=== PATIENT | female | born 1980 | race Caucasian/White ===

== ENCOUNTER 2022-08-26 07:30 | Inpatient (IN) ==
[~2022-08-26 07:30] MED LIST: Buffered Lidocaine 1% SYRIN 1 ml INTRADERM ONE; Lactated Ringers 1000 ml BAG 1,000 ML IV SCH
[2022-08-26] MEDS ORDERED: ROPIVACAINE 5 MG/ML 30 ML BTL (0.5%) ONE (07:47)
[2022-08-26] MEDS ORDERED: ceFAZolin 2 GM in NS PREMIX 2 GM/100 ML BAG IVPB ONE (10:49)
[2022-08-26 12:09] LABS: Rapid COVID-19 Molecular Undetected (Undetected)
[2022-08-26] MEDS ORDERED: Acetaminophen IV 1 GM/100ML 1,000 MG/100 ML BAG IV PRN (12:29)
[2022-08-26] MEDS ORDERED: Ondansetron 4 mg VIAL 2 MG/ML 2 ml VIAL IV PRN (12:29)
[2022-08-26] MEDS ORDERED: Naloxone 0.4 mg VIAL 0.4 mg/ml 1 ml VIAL IV PRN (12:29)
[2022-08-26] MEDS ORDERED: Midazolam 2 mg/2 ml VIAL 1 mg/ml 2 ml VIAL (2 mg) ONE (13:05)
[2022-08-26] MEDS ORDERED: fentaNYL 250 mcg/5 ml 50 MCG/ML 5 ml VIAL (250 MCG) ONE (13:05)
[2022-08-26] MEDS ORDERED: Propofol 10 MG/ML 20 ML BTL ONE ×2 (13:07→16:03)
[2022-08-26] MEDS ORDERED: Rocuronium 50 mg VIAL 10 mg/ml 5 ml VIAL (50 mg) ONE (13:18)
[2022-08-26] MEDS ORDERED: Acetaminophen IV 1 GM/100ML 1,000 MG/100 ML BAG IV ONE (13:43)
[2022-08-26] MEDS ORDERED: Dexamethasone IV 4 MG/ML VIAL 1 ml VIAL ONE (13:43)
[2022-08-26] MEDS ORDERED: Ondansetron 4 mg VIAL 2 MG/ML 2 ml VIAL ONE (13:43)
[2022-08-26] MEDS ORDERED: HYDROmorphone 0.5 MG/0.5 ML SYRINGE ONE ×2 (14:16→19:02)
[2022-08-26] MEDS ORDERED: Ketamine HCL 50 mg/ml 10 ml VIAL (500 MG) ONE (14:17)
[2022-08-26] MEDS ORDERED: Magnesium Hydroxide LIQ 30 ML UDC PO PRN (14:28)
[2022-08-26] MEDS ORDERED: Lactulose 30 ml UDC PO PRN (14:28)
[2022-08-26] MEDS ORDERED: Prochlorperazine 5 mg/ml 2 ml VIAL (10 mg) IV PRN (14:33)
[2022-08-26] MEDS ORDERED: fentaNYL 100 mcg/2 ml 50 MCG/ML VIAL ONE ×3 (15:58→16:34)
[2022-08-26] MEDS ORDERED: HYDROmorphone 1 MG/1 ML SYRINGE ONE ×4 (16:14→18:56)
[2022-08-26] MEDS: fentaNYL 100 mcg/2 ml 50 MCG/ML VIAL IV PRN ×5 (16:18→16:44)
[2022-08-26] MEDS: HYDROmorphone 1 MG/1 ML SYRINGE IV PRN ×3 (16:35→16:45)
[2022-08-26] MEDS ORDERED: Lorazepam PYXIS KEY PRN (16:39)
[2022-08-26] MEDS ORDERED: LORazepam 2 mg VIAL 1 ml ONE (16:46)
[2022-08-26] MEDS ORDERED: HYDROmorphone 1 MG/1 ML SYRINGE IV PRN (16:50)
[2022-08-26] MEDS: LORazepam 2 mg VIAL 1 ml IV PUSH PRN (16:55)
[2022-08-26] MEDS ORDERED: Nicotine PATCH 21 MG/24 HR PATCH TRANSDERM PRN (17:33)
[2022-08-26] MEDS ORDERED: Dextrose 50% Syringe 50 ml 25 GM/50 ML SYRINGE IV PUSH PRN (17:46)
[2022-08-26] MEDS: Lactated Ringers 1000 ml BAG 1,000 ML IV SCH (19:04)
[2022-08-26] MEDS: Morphine 2 MG/ML SYRINGE IV PRN (19:27)
[2022-08-26] MEDS: Magnesium Hydroxide LIQ 30 ML UDC PO SCH (21:03)
[2022-08-26] MEDS: ceFAZolin 1 GM ADVAN 1 GM in NS 0.9% 50 ML 50 ML IVPB SCH (22:14)
[2022-08-27] MEDS: LORazepam 2 mg VIAL 1 ml IV PUSH PRN (01:17)
[2022-08-27] MEDS: Lactated Ringers 1000 ml BAG 1,000 ML IV SCH (04:34)
[2022-08-27] MEDS: ceFAZolin 1 GM ADVAN 1 GM in NS 0.9% 50 ML 50 ML IVPB SCH ×2 (05:25→15:01)
[2022-08-27 06:31] LABS: Calcium 8.2 mg/dL (8.6-10.3); Potassium 4.8 mmol/L (3.5-5.0)
[2022-08-27 06:37] LABS: Creatinine, Serum 0.79 mg/dL (0.51-0.95); eGFR CKD-EPI 94.5 (>60)
[2022-08-27 07:17] LABS: Hematocrit 29.6 % (35-45); Hemoglobin 9.6 g/dL (11.5-14.3); Platelet Count Platelets clumped. 10^3/uL (150-450)
[2022-08-27] MEDS: Vitamin THERAPEUTIC TAB PO SCH (08:06)
[2022-08-27] MEDS: Magnesium Hydroxide LIQ 30 ML UDC PO SCH ×2 (08:07→20:37)
[2022-08-27 08:28] LABS: Mean Platelet Volume 7.8 fL (7.5-11.2); Platelet Count 276 10^3/uL (150-450)
[2022-08-27] MEDS: Methadone ORALSYR CONC LIQ 10 MG/ML PO SCH (08:47)
[2022-08-27] MEDS ORDERED: Naloxone Nasal Spray 4 MG/0.1 ML NASAL.SPR INTRANASAL PRN (10:02)
[2022-08-28 05:46] LABS: Hematocrit 29.8 % (35-45); Hemoglobin 9.7 g/dL (11.5-14.3); Mean Platelet Volume 7.9 fL (7.5-11.2); Platelet Count 267 10^3/uL (150-450)
[2022-08-28] MEDS: Magnesium Hydroxide LIQ 30 ML UDC PO SCH ×2 (08:39→20:23)
[2022-08-28] MEDS: Vitamin THERAPEUTIC TAB PO SCH (08:39)
[2022-08-28] MEDS: Methadone ORALSYR CONC LIQ 10 MG/ML PO SCH (08:39)
[2022-08-29 06:02] LABS: Mean Platelet Volume 8.1 fL (7.5-11.2); Platelet Count 254 10^3/uL (150-450)
[2022-08-29] MEDS: Methadone ORALSYR CONC LIQ 10 MG/ML PO SCH (08:22)
[2022-08-29] MEDS: Magnesium Hydroxide LIQ 30 ML UDC PO SCH ×2 (08:22→21:44)
[2022-08-29] MEDS: Vitamin THERAPEUTIC TAB PO SCH (08:23)
[2022-08-29] MEDS: Morphine 2 MG/ML SYRINGE IV PRN ×3 (12:30→21:48)
[2022-08-30 05:53] LABS: Hematocrit 27.4 % (35-45); Platelet Count 322 10^3/uL (150-450)
[2022-08-30] MEDS: Magnesium Hydroxide LIQ 30 ML UDC PO SCH ×2 (08:23→21:20)
[2022-08-30] MEDS: Methadone ORALSYR CONC LIQ 10 MG/ML PO SCH (09:00)
[2022-08-30] MEDS: Vitamin THERAPEUTIC TAB PO SCH (09:01)
[2022-08-30] MEDS: Morphine 2 MG/ML SYRINGE IV PRN (16:41)
[2022-08-30] MEDS ORDERED: Polyethylene Glycol 3350 17 GM PACKET PO PRN (18:34)
[2022-08-30] MEDS ORDERED: Senna TAB 8.6 mg TAB PO SCH (21:00)
[2022-08-30] MEDS ORDERED: Morphine 2 MG/ML SYRINGE IV PRN (22:00)
[2022-08-31 06:22] LABS: Hematocrit 27.2 % (35-45); Hemoglobin 9.3 g/dL (11.5-14.3); Mean Platelet Volume 7.7 fL (7.5-11.2); Platelet Count 349 10^3/uL (150-450)
[2022-08-31] MEDS: Methadone ORALSYR CONC LIQ 10 MG/ML PO SCH (08:20)
[2022-08-31] MEDS: Vitamin THERAPEUTIC TAB PO SCH (08:21)
[2022-08-31] MEDS: Magnesium Hydroxide LIQ 30 ML UDC PO SCH (08:21)
[2022-08-31 09:56] VITALS: BP 103/70
== END 2022-08-31 13:20 | disposition home or self-care (01) | DRG 301 ==
LOC: AA 10:14 → INTOOBSV 10:14 → SSU 18:11
PROVIDERS: ADMIT Orthopaedic Surgery Adult Reconstructive Orthopaedic Surgery; ATTEND Orthopaedic Surgery Adult Reconstructive Orthopaedic Surgery